=== PATIENT | male | born 2000 | race Caucasian/White ===

== ENCOUNTER 2021-04-14 17:38 | Emergency (ER) | payer SELFPAY ==
[~2021-04-14] VITALS: Ht 172.7 cm; Wt 75.0 kg
--- NOTE | 2021-04-14 17:55 | PHYS DOC ---
Past History Past Medical History: Anxiety, Constipation Smoking: Cigarettes Drug Use: Marijuana General Adult EDM: Chief Complaint: ABDOMINAL PAIN HPI: HPI: Normally follows with ".. I was eating pizza and drinking a coke.. and then I got rapid heart rate.. and abdomen pain.. short of breath.. I thought I was having an anxiety attack... or panic attack.. I did just refused everything.. but I just got off the phone with my mom... and she said I should get checked out." Patient is a 20 year old male who presents with above hx and complaints of abdomen pain. Patient does have a history of anxiety. Patient denies any travel. No specific ill contacts. Normally healthy. Complains of focalized epigastric area. No history of tarry stools. Patient does smoke tobacco and marijuana. Review of Systems: Review of Systems: Constitutional: Denies fever or chills Eyes: Denies change in visual acuity HENT: Denies nasal congestion or sore throat Respiratory: Denies cough or shortness of breath Cardiovascular: Denies chest pain or edema GI: Complains of epigastric abdominal pain, nausea,. Denies vomiting, bloody stools or diarrhea : Denies dysuria Musculoskeletal: Denies back pain or joint pain Integument: Denies rash Neurologic: Denies headache, focal weakness or sensory changes Endocrine: Denies polyuria or polydipsia Lymphatic: Denies swollen glands Psychiatric: Denies depression or anxiety Family History: Family History: Noncontributory Current Medications: Current Meds: See nursing for home meds Allergies: Allergies: No known drug allergies Physical Exam: PE: Constitutional: Well developed, well nourished, no acute distress, non-toxic appearance. [] HENT: Normocephalic, atraumatic, bilateral external ears normal, oropharynx moist, no oral exudates, nose normal. [] Eyes: PERRLA, EOMI, conjunctiva normal, no discharge. [] Neck: Normal range of motion, no tenderness, supple, no stridor. [] Cardiovascular: Bradycardia heart rate regular rhythm, no murmur []. Bedside monitor shows a sinus bradycardic Lungs & Thorax: Bilateral breath sounds clear to auscultation [] Abdomen: Bowel sounds normal, soft, mild epigastric tenderness, no masses, no pulsatile masses. [] Rebound epigastric. Overall abdomen very distended Skin: Warm, dry, no erythema, no rash. [] Back: No tenderness, no CVA tenderness. [] Extremities: No tenderness, no cyanosis, no clubbing, ROM intact, no edema. No psoas sign. Neurologic: Alert and oriented X 3, normal motor function, normal sensory function, no focal deficits noted. [] Psychologic: Affect normal, judgement normal, mood normal. [] EKG: EKG: My interpretation EKG shows a sinus rhythm at 59 bpm. No acute morphology. Time of EKG is 2153 hrs. [] Radiology/Procedures: Radiology/Procedures: [][place] [address] IMAGING REPORT Signed PATIENT: SANYA JAVIER ACCOUNT: [id number] : 2000 LOCATION: ER AGE: 20 SEX: M EXAM STATUS: REG ER ORD. PHYSICIAN: VANESA MIRAMONTES MD REASON: dyspnea, abd. pain PROCEDURE: ACUTE ABDOMEN SERIES Exam: Acute abdominal series INDICATION: Dyspnea TECHNIQUE: Frontal view of the chest with upright and supine views of the abdomen Comparisons: None FINDINGS: The cardiomediastinal silhouette and pulmonary vessels are within normal limits. The lung and pleural spaces are clear. Air and stool are noted throughout the colon to level the rectum in a nonobstructive bowel gas pattern. No suspicious masses or calcifications. Visualized osseous structures are unremarkable. IMPRESSION: 1. No acute cardiopulmonary process. 2. Nonobstructive bowel gas pattern. Electronically signed by: Bernadine Patel MD (04/14/2021 7:11 PM) [facility] DICTATED AND SIGNED BY: BERNADINE PATEL MD DATE: 04/14/211909 CC: VANESA MIRAMONTES MD; PCP,NO ~MTH0 0 Heart Score: C/O Chest Pain: N/A Risk Factors: Risk Factors: DM, Current or recent (<one month) smoker, HTN, HLP, family history of CAD, obesity. Risk Scores: Score 0 - 3: 2.5% MACE over next 6 weeks - Discharge Home Score 4 - 6: 20.3% MACE over next 6 weeks - Admit for Clinical Observation Score 7 - 10: 72.7% MACE over next 6 weeks - Early Invasive Strategies Course & Med Decision Making: Course & Med Decision Making Pertinent Labs and Imaging studies reviewed. (See chart for details) Patient stay on a clear fluid diet only for the next 48 hours. Take Tylenol and ibuprofen as needed for discomfort. Reexam if no improvement follow-up primary care. Return if any concerns. Impression: 1. Abdomen Pain 2. Constipation. 3. Hx. of anxiety and panic attacks [] Dragon Disclaimer: Dragon Disclaimer: This electronic medical record was generated, in whole or in part, using a voice recognition dictation system. Dragon Disclaimer This chart was dictated in whole or in part using Voice Recognition software in a busy, high-work load, and often noisy Emergency Department environment. It may contain unintended and wholly unrecognized errors or omissions. Dragon Disclaimer This chart was dictated in whole or in part using Voice Recognition software in a busy, high-work load, and often noisy Emergency Department environment. It may contain unintended and wholly unrecognized errors or omissions. VANESA MIRAMONTES MD Apr 14, 2021 17:54
[2021-04-14] MEDS ORDERED: ONDANSETRON PF 4 MG/2 ML VIAL. IVP ONE (18:00)
[2021-04-14] MEDS ORDERED: KETOROLAC 30 MG/ML VIAL. IVP ONE (18:00)
[2021-04-14] MEDS ORDERED: FAMOTIDINE 20 MG/2 ML VIAL IVP ONE (18:00)
[2021-04-14] MEDS ORDERED: IV RINGERS SOLUTION,LACTATED 1,000 ML IV SCH (18:00)
[2021-04-14 18:22] VITALS: BP 148/85
--- NOTE | 2021-04-14 19:13 | RAD ---
Exam: Acute abdominal series INDICATION: Dyspnea TECHNIQUE: Frontal view of the chest with upright and supine views of the abdomen Comparisons: None FINDINGS: The cardiomediastinal silhouette and pulmonary vessels are within normal limits. The lung and pleural spaces are clear. Air and stool are noted throughout the colon to level the rectum in a nonobstructive bowel gas patter n. No suspicious masses or calcifications. Visualized osseous structures are unremarkable. IMPRESSION: 1. No acute cardiopulmonary process. 2. Nonobstructive bowel gas pattern. Electronically signed by: Connor Huang MD (04/14/2021 7:11 PM) [facility]
[2021-04-14 19:33] LABS: BASO # 0.1 x10^3/uL (0.0-0.2); BASO % 1 % (0-3); EOS # 0.1 x10^3/uL (0.0-0.7); EOS % 3 % (0-3); HEMATOCRIT 39.4 % (39.0-53.0); HEMOGLOBIN 13.3 g/dL (13.0-17.5); LYMPH # 1.1 x10^3/uL (1.0-4.8); LYMPH % 22 % (24-48); MEAN CORPUSCULAR HEMOGLOBIN 31 pg (25-35); MEAN CORPUSCULAR HGB CONC 34 g/dL (31-37); MEAN CORPUSCULAR VOLUME 91 fL (79-100); MONO # 0.7 x10^3/uL (0.0-1.1); MONO % 15 % (0-9); NEUT % 60 % (31-73); PLATELET COUNT 216 x10^3/uL (140-400); RED BLOOD COUNT 4.31 x10^6/uL (4.30-5.70); RED CELL DISTRIBUTION WIDTH 13.3 % (11.5-14.5)
[2021-04-14 19:34] LABS: CALCIUM 8.8 mg/dL (8.5-10.1); CREATININE 0.8 mg/dL (0.7-1.3); GFR 124.5
[2021-04-14 19:40] LABS: ALBUMIN 3.8 g/dL (3.4-5.0); DIRECT BILIRUBIN 0.1 mg/dL (0.0-0.2); TOTAL BILIRUBIN 0.6 mg/dL (0.2-1.0); TOTAL PROTEIN 6.6 g/dL (6.4-8.2)
[2021-04-14 20:18] LABS: BARBITURATES NEG (NEG); BENZODIAZEPINES NEG (NEG); CANNABINOIDS POS (NEG); COCAINE NEG (NEG); METHADONE NEG (NEG); OPIATES NEG (NEG); PHENCYCLIDINE NEG (NEG)
[2021-04-14 20:20] LABS: AMPHETAMINE/METHAMPHETAMINE NEG (NEG)
[2021-04-14 20:49] LABS: BILIRUBIN,URINE NEG (NEG); CLARITY,URINE CLEAR; COLOR,URINE YELLOW; GLUCOSE,URINE NEG (NEG)
[2021-04-14 20:50] LABS: NITRITE,URINE NEG (NEG); UROBILINOGEN,URINE 0.2 mg/dL (0.2 mg/dL)
[2021-04-14 20:52] LABS: BACTERIA,URINE 0 /HPF (0-FEW); RBC,URINE RARE /HPF (0-2)
[2021-04-14 20:53] LABS: HYALINE CASTS, URINE OCC /HPF
[2021-04-14] MEDS ORDERED: MAGNESIUM HYDROXIDE 2,400 MG/30 ML ORAL.SUSP. PO ONE (21:45)
--- NOTE | 2021-04-14 22:16 | EKG ---
[facility] ED [facility] [address] [place] [id number] Test Date: 2021-04-14 Test Time: 21:53:56 Pat Name: SANYA JAVIER Department: Room: Gender: M Engineering Administrator: KATIE : 2000 Requested By: VANESA MIRAMONTES Order Number: [id number] Reading MD: Measurements Intervals [place] Rate: 59 P: 0 UT: 120 QRS: 75 QRSD: 98 T: 49 QT: 392 QTc: 388 Interpretive Statements SINUS RHYTHM OTHERWISE NORMAL ECG RI6.02 No previous ECG available for comparison
== END 2021-04-14 22:13 | disposition home or self-care (01) ==
LOC: ER 17:38
DX: K59.00 Constipation, unspecified (principal); R10.13 Epigastric pain; F41.9 Anxiety disorder, unspecified; F17.210 Nicotine dependence, cigarettes, uncomplicated; F12.10 Cannabis abuse, uncomplicated
CPT/HCPCS: 36415; 74022; 80048; 80076; 80307; 81001; 82150; 82550; 83690; 84484; 85025; 93005; 99285-25

== ENCOUNTER 2021-04-21 20:19 | Emergency (ER) | payer OTHER ==
[~2021-04-21] VITALS: Ht 185.4 cm; Wt 72.0 kg
[2021-04-21 20:34] VITALS: BP 114/81
--- NOTE | 2021-04-21 21:46 | PHYS DOC ---
Past History Past Medical History: Anxiety, Constipation (ELAINE HURTADO APRN) Past Surgical History: Other Additional Past Surgical Histo: tubes in ears (ELAINE HURTADO APRN) Smoking: Cigarettes Alcohol Use: None Drug Use: Marijuana (ELAINE HURTADO APRN) General Adult EDM: Chief Complaint: BACK PAIN - NO INJURY HPI: HPI: Patient is a 20-year-old male being seen in the ER today for lower back pain that extends to his upper back and left lower abdomen along with constipation. Patient reports that his last normal bowel movement was 2 weeks ago. Patient has a history of constipation is supposed to be taking MiraLAX but just started taking it. Patient is also reporting nausea and vomiting, he reports vomiting one time today. Patient denies fevers, urinary complaints, blood in stools. (ELAINE HURTADO APRN) Review of Systems: Review of Systems: 14 body systems of the review of systems have been reviewed. See HPI for pertinent positive and negative responses, otherwise all other systems are negative, nonpertinent or noncontributory (ELAINE HURTADO APRN) Allergies: Allergies: Allergies Coded Allergies Type Severity Reaction Last Updated Verified No Known Drug Allergies 04/14/21 No (ELAINE HURTADO APRN) Physical Exam: PE: Constitutional: Well developed, well nourished, no acute distress, non-toxic appearance. [] HENT: Normocephalic, atraumatic Eyes: PERRL, conjunctiva normal, no discharge. [] Neck: Normal range of motion, no tenderness, supple, no stridor. [] Cardiovascular:Heart rate regular rhythm, no murmur [] Lungs & Thorax: Bilateral breath sounds clear to auscultation [] Abdomen: Bowel sounds normal, soft, no tenderness with palpation, no masses, no pulsatile masses. [] Skin: Warm, dry, no erythema, no rash. [] Back: Generalized back pain, no bony spinal tenderness, no CVA tenderness. [] Extremities: No tenderness, no cyanosis, no clubbing, ROM intact, no edema. [] Neurologic: Alert and oriented X 3, normal motor function, normal sensory function, no focal deficits noted. [] Psychologic: Affect normal, judgement normal, mood normal. [] (ELAINE HURTADO APRN) Current Patient Data: Vital Signs: Vital Signs Date Time Temp Pulse Resp B/P (MAP) Pulse Ox O2 Delivery O2 Flow Rate FiO2 04/21/21 20:34 98.4 93 18 114/81 97 Room Air (ELAINE HURTADO APRN) EKG: EKG: [] (ELAINE HURTADO APRN) Radiology/Procedures: Radiology/Procedures: [] (ELAINE HURTADO APRN) Impressions: CT abdomen and pelvis without contrast: Reason for examination: Abdominal pain with nausea and constipation. Helical images were obtained through the abdomen and pelvis with no intravenous or oral contrast administered. Reconstruction was performed in sagittal and coronal planes. Exposure: One or more of the following individualized dose reduction techniques were utilized for this examination: 1. Automated exposure control 2. Adjustment of the mA and/or kV according to patient size 3. Use of iterative reconstruction technique. The lung bases are clear. The heart size is normal with no pericardial effusion. No focal abnormalities are seen at the liver, spleen, adrenal glands, pancreas or gallbladder. The abdominal aorta and inferior vena cava show no acute abnormalities. The stomach and duodenum show no acute abnormalities. The small intestinal tract shows no abnormal dilatation, wall thickening or evidence of obstruction. The colon shows no diverticulosis, diverticulitis or evidence of colitis. No abnormality is seen at the appendix. The kidneys show no renal masses, renal calculi, hydronephrosis or evidence of obstructive uropathy. No abnormality seen at the bladder, prostate gland or seminal vesicles. No free fluid or free air seen in the abdomen or pelvis. No acute bony abnormalities are seen. IMPRESSION: No renal calculi or evidence of obstructive uropathy. No other focal abnormality seen in the abdomen or pelvis. Electronically signed by: Susan Burt MD (04/21/2021 10:27 PM) [facility] DICTATED AND SIGNED BY: SUSAN BURT MD DATE: 04/21/212216 CC: ELAINE HURTADO APRN; NON,STAFF ~[facility] 0 (JONEL COPELAND DO) Heart Score: C/O Chest Pain: No Risk Factors: Risk Factors: DM, Current or recent (<one month) smoker, HTN, HLP, family history of CAD, obesity. Risk Scores: Score 0 - 3: 2.5% MACE over next 6 weeks - Discharge Home Score 4 - 6: 20.3% MACE over next 6 weeks - Admit for Clinical Observation Score 7 - 10: 72.7% MACE over next 6 weeks - Early Invasive Strategies (ELAINE HURTADO APRN) Course & Med Decision Making: Course & Med Decision Making Pertinent Labs and Imaging studies reviewed. (See chart for details) Patient is a 20-year-old male being seen in the ER today for back pain and constipation. Work-up in the ER consisted of blood work and CT scan of his abdomen. I discussed patient's case with supervising physician, care transferred at this time 2110 (ELAINE HURTADO APRN) Course & Med Decision Making The patient CT of the abdomen and pelvis is unremarkable. Patient does have some stool so we will try magnesium citrate. The patient feels like he is having muscle spasms. He 5 mg of Valium. He feels like he can go home. He is stable for discharge at this time. (JONEL COPELAND DO) Dragon Disclaimer: Dragon Disclaimer: This electronic medical record was generated, in whole or in part, using a voice recognition dictation system. (ELAINE HURTADO APRN) Departure Departure: Impression: Primary Impression: Constipation Additional Impression: Back pain Disposition: HOME / SELF CARE / HOMELESS Condition: STABLE Referrals: NON,STAFF (PCP) Patient Instructions: Back Pain, Adult, Ivrr-ee-Qssg, Constipation, Adult, Jkpe-aw-Icwz ELAINE HURTADO APRN Apr 21, 2021 21:46 JONEL COPELAND DO Apr 21, 2021 22:43
--- NOTE | 2021-04-21 22:30 | RAD ---
CT abdomen and pelvis without contrast: Reason for examination: Abdominal pain with nausea and constipation. Helical images were obtained through the abdomen and pelvis with no intravenous or oral contrast admi nistered. Reconstruction was performed in sagittal and coronal planes. Exposure: One or more of the following individualized dose reduction techniques were utilized for thi s examination: 1. Automated exposure control 2. Adjustment of the mA and/or kV according to patient size 3. Use of iterative reconstruction technique. The lung bases are clear. The heart size is normal with no pericardial effusion. No focal abnormalities are seen at the liver, spleen, adrenal glands, pancreas or gallbladder. The ab dominal aorta and inferior vena cava show no acute abnormalities. The stomach and duodenum show no ac [place] abnormalities. The small intestinal tract shows no abnormal dilatation, wall thickening or eviden ce of obstruction. The colon shows no diverticulosis, diverticulitis or evidence of colitis. No abnor mality is seen at the appendix. The kidneys show no renal masses, renal calculi, hydronephrosis or ev idence of obstructive uropathy. No abnormality seen at the bladder, prostate gland or seminal vesicles. No free fluid or free air see n in the abdomen or pelvis. No acute bony abnormalities are seen. IMPRESSION: No renal calculi or evidence of obstructive uropathy. No other focal abnormality seen in the abdomen or pelvis. Electronically signed by: Susan Loving MD (04/21/2021 10:27 PM) [facility]
[2021-04-21 22:37] LABS: BASO # 0.1 x10^3/uL (0.0-0.2); BASO % 1 % (0-3); EOS % 0 % (0-3); HEMATOCRIT 39.9 % (39.0-53.0); HEMOGLOBIN 13.7 g/dL (13.0-17.5); LYMPH # 0.7 x10^3/uL (1.0-4.8); LYMPH % 9 % (24-48); MEAN CORPUSCULAR HEMOGLOBIN 31 pg (25-35); MEAN CORPUSCULAR HGB CONC 34 g/dL (31-37); MEAN CORPUSCULAR VOLUME 90 fL (79-100); MONO # 0.7 x10^3/uL (0.0-1.1); MONO % 9 % (0-9); NEUT # 6.5 x10^3uL (1.8-7.7); NEUT % 81 % (31-73); PLATELET COUNT 223 x10^3/uL (140-400); RED BLOOD COUNT 4.42 x10^6/uL (4.30-5.70); RED CELL DISTRIBUTION WIDTH 13.2 % (11.5-14.5)
[2021-04-21 22:45] LABS: CALCIUM 8.9 mg/dL (8.5-10.1); CREATININE 0.8 mg/dL (0.7-1.3); GFR 124.5; POTASSIUM 3.7 mmol/L (3.5-5.1)
[2021-04-21] MEDS ORDERED: MAGNESIUM CITRATE 296 ML SOLUTION. PO ONE (22:45)
[2021-04-21 22:50] LABS: ALBUMIN 4.1 g/dL (3.4-5.0); ALBUMIN/GLOBULIN RATIO 1.4 (1.0-1.7); TOTAL BILIRUBIN 0.6 mg/dL (0.2-1.0); TOTAL PROTEIN 7.1 g/dL (6.4-8.2)
[2021-04-21] MEDS ORDERED: diazePAM 5 MG TABLET. PO ONE (23:15)
== END 2021-04-21 23:42 | disposition home or self-care (01) ==
LOC: ER 20:19
DX: K59.00 Constipation, unspecified (principal); M54.5 Low back pain; R11.2 Nausea with vomiting, unspecified; F41.9 Anxiety disorder, unspecified; F17.210 Nicotine dependence, cigarettes, uncomplicated
CPT/HCPCS: 36415; 74176; 80053; 85025; 99284

== ENCOUNTER 2021-05-05 17:09 | Emergency (ER) | payer OTHER ==
[~2021-05-05] VITALS: Ht 185.4 cm; Wt 70.0 kg
[2021-05-05] MEDS ORDERED: FAMO-63 PO (18:08)
[2021-05-05] MEDS ORDERED: ONDA4TAB12 PO (18:08)
--- NOTE | 2021-05-05 18:08 | PHYS DOC ---
Past History Past Medical History: Anxiety, Constipation Additional Past Surgical Histo: tubes in ears Smoking: Cigarettes Alcohol Use: None Drug Use: Marijuana General Adult EDM: Chief Complaint: HEADACHE HPI: HPI: Patient is a 20 year old male who presents with concerns over a palpable "bump" on the back of his head. States he first noticed it several months ago but that he has not had any complications with it since then. States it is nontender but he began having involuntary shaking of his upper extremities as well as palpitations after touching it earlier today. Notes complete resolution of these symptoms currently. He also notes a history of anxiety for which he recently resumed taking venlafaxine. Also reports epigastric pain and nausea but denies vomiting. Denies fevers, chills, headache, chest pain, or shortness of breath. Review of Systems: Review of Systems: Constitutional: Denies fever or chills Eyes: Denies redness or eye pain HENT: Reports nontender protuberance on posterior aspect of skull. Denies nasal congestion or sore throat Respiratory: Denies cough or shortness of breath Cardiovascular: Denies chest pain or palpitations GI: Reports abdominal pain and nausea. Denies vomiting : Denies dysuria or hematuria Musculoskeletal: Denies back pain or joint pain Integument: Denies rash or skin lesions Neurologic: Denies headache, focal weakness or sensory changes Complete systems were reviewed and found to be within normal limits, except as documented in this note. Allergies: Allergies: Allergies Coded Allergies Type Severity Reaction Last Updated Verified No Known Drug Allergies 04/14/21 No Physical Exam: PE: Constitutional: Tearful. Well developed, well nourished, no acute distress, non- toxic appearance HENT: Normocephalic, atraumatic. Patient points to a bony protuberance that appears to be cranial and symmetrical in nature. No tenderness or erythema noted. Eyes: PERRL, EOMI, conjunctiva normal, no discharge Neck: Normal range of motion, no tenderness, supple Lungs & Thorax: No respiratory distress, equal chest rise and fall Abdomen: Soft, no tenderness Skin: Warm, dry, no erythema, no rash Extremities: No tenderness, ROM intact, no edema Neurologic: Alert and oriented X 3, normal motor function, normal sensory function, no focal deficits noted Psychologic: Affect anxious, judgment normal Current Patient Data: Vital Signs: Vital Signs Date Time Temp Pulse Resp B/P (MAP) Pulse Ox O2 Delivery O2 Flow Rate FiO2 05/05/21 17:45 98.5 80 16 128/70 98 Room Air EKG: EKG: [] Radiology/Procedures: Radiology/Procedures: [] Heart Score: C/O Chest Pain: N/A Course & Med Decision Making: Course & Med Decision Making 20 year old male presents with concerns over a bony protuberance on the posterior skull that appears to be cranial in nature. It was symmetric and n ontender without erythema. Remainder of physical examination did not reveal any acute abnormalities. Patient was given Zofran while in the ED and a prescription for Pepcid. Patient stable for discharge with outpatient follow-up with PCP/GI. GI referral provided. Discussed findings and plan with patient, who acknowledges understanding and agreement. Ziyad Disclaimer: Ziyad Disclaimer: This electronic medical record was generated, in whole or in part, using a voice recognition dictation system. Departure Departure: Impression: Primary Impression: Nausea Additional Impression: Epigastric abdominal pain Disposition: HOME / SELF CARE / HOMELESS Condition: STABLE Referrals: CARLTON GOODE DO (PCP) DARBY EASTMAN MD Patient Instructions: Anxiety and Panic Attacks, Keqa-mp-Kcwz, Gastritis, Adult, Pege-ci-Zcbn, Nausea, Adult, Pvtx-mp-Wwbm Additional Instructions: Please follow with your family physician in addition to GI specialist for further management. Please take your prescribed anxiety medication as directed. Scripts Ondansetron (ONDANSETRON ODT) 4 Mg Tab.rapdis 1 TAB PO PRN Q6-8HRS PRN for NAUSEA, #16 TAB Prov: LETICIA VIDAL DO 05/05/21 Famotidine (PEPCID) 20 Mg Tablet 1 TAB PO BID for Gastritis, #60 TAB Prov: LETICIA VIDAL DO 05/05/21 LETICIA VIDAL DO May 05, 2021 18:08
[2021-05-05] MEDS ORDERED: ONDANSETRON ODT 4 MG TAB.RAPDIS PO ONE (18:15)
[2021-05-05 18:22] VITALS: BP 114/70
== END 2021-05-05 18:24 | disposition home or self-care (01) ==
LOC: ER 17:09
DX: R10.13 Epigastric pain (principal); R00.2 Palpitations; R11.0 Nausea; F17.210 Nicotine dependence, cigarettes, uncomplicated
CPT/HCPCS: 99283; Q0162

== ENCOUNTER 2021-07-01 12:04 | Emergency (ER) | payer OTHER ==
[~2021-07-01] VITALS: Ht 185.4 cm; Wt 70.0 kg
[~2021-07-01 12:04] MED LIST: FAMO-63 PO; ONDA4TAB12 PO
[2021-07-01 12:20] VITALS: BP 114/70
[2021-07-01] MEDS ORDERED: LORazepam 1 MG TABLET PO ONE (12:45)
[2021-07-01] MEDS ORDERED: ORPHENADRINE CITRATE 60 MG/2 ML VIAL. IM ONE (12:45)
--- NOTE | 2021-07-01 12:57 | PHYS DOC ---
Past History Past Medical History: Anxiety, Constipation (TONYA KEEN) Past Surgical History: No Surgical History Additional Past Surgical Histo: tubes in ears (TONYA KEEN) Smoking: Cigarettes Alcohol Use: None Drug Use: Marijuana (TONYA KEEN) General Adult EDM: Chief Complaint: Neck Pain HPI: HPI: Patient is a 21 year old male with history of anxiety and depression who presents with multiple complaints including spine moving to the right side of his body, right sided neck swelling, labile body temperature, difficulty breathing, left-sided low rib/upper abdominal swelling, and lightheadedness with sudden movements. Patient reports he has been seen at several different emergency departments over the past 2 months with unremarkable work-up. He states the only evaluation he has not had is for his brain, and requests a "brain scan." His most recent ER visit was yesterday at [facility], where they discharged him letting him know that he was physically in good health. Patient states he takes daily medications for anxiety and depression for the past 5 years. [place]. He states he does not follow with a therapist or psychologist at this time. (TONYA KEEN) Review of Systems: Review of Systems: ROS negative except as mentioned in HPI. (TONYA KEEN) Current Medications: Current Meds: Current Medications Medications (Trade) Dose Ordered Sig/Leif Start Time Stop Time Status Last Admin Dose Admin Lorazepam (Ativan) 1 mg 1X ONCE 07/01/21 12:45 07/01/21 12:46 DC Orphenadrine Citrate (Norflex) 60 mg 1X ONCE 07/01/21 12:45 07/01/21 12:46 DC (TONYA KEEN) Allergies: Allergies: Allergies Coded Allergies Type Severity Reaction Last Updated Verified No Known Drug Allergies 04/14/21 No (TONYA KEEN) Physical Exam: PE: Constitutional: Tearful, well developed, well nourished, no acute distress, non- toxic appearance. HENT: Normocephalic, atraumatic, bilateral external ears normal, oropharynx moist, no oral exudates, nose normal. Eyes: PERRLA, EOMI, conjunctiva normal, no discharge. Neck: Normal range of motion, no bony tenderness, bilateral paraspinal spasm, supple, no stridor. Cardiovascular:Heart rate regular rhythm, no murmur. Lungs & Thorax: Bilateral breath sounds clear to auscultation. Abdomen: Bowel sounds normal, soft, no tenderness, no masses, no pulsatile masses. Skin: Warm, dry, no erythema, no rash. Back: No bony tenderness, paraspinal thoracic spasm, no CVA tenderness. Extremities: No tenderness, no cyanosis, no clubbing, ROM intact, no edema. Neurologic: Alert and oriented x3, normal motor function, normal sensory function, no focal deficits noted. Psychologic: Affect anxious, judgement fair, mood worried. (TONYA KEEN) Current Patient Data: Vital Signs: Vital Signs Date Time Temp Pulse Resp B/P (MAP) Pulse Ox O2 Delivery O2 Flow Rate FiO2 07/01/21 12:20 98.1 84 18 114/70 (85) 97 Room Air (TONYA KEEN) Heart Score: C/O Chest Pain: No (TONYA KEEN) Course & Med Decision Making: Course & Med Decision Making Pertinent Labs and Imaging studies reviewed. (See chart for details) Patient appears to be extremely anxious and has diffuse nonemergent body complaints. Patient will be provided with Ativan and a muscle relaxer to alleviate his back tension and pain. Patient is open to contacting the [facility] for therapy and psychological follow-up, [place]. He is informed that for further neurologic testing, he will need referral from his primary care provider, and that those are not offered here in the emergency department. On reevaluation at 1325, patient is much more relaxed and does not seem to be in distress. Prescriptions for Norflex and Ativan will be provided to the patient on discharge. After some conversation, patient understands that while his anxiety has been controlled well with his current medications, that is it a dynamic disorder and he may need reevaluation. Patient understands and is agreeable to discharge plan. (TONYA KEEN) Dragon Disclaimer: Dragon Disclaimer: This electronic medical record was generated, in whole or in part, using a voice recognition dictation system. (TONYA KEEN) Departure Departure: Impression: Primary Impression: Anxiety about health Additional Impression: Muscle spasm of back Disposition: HOME / SELF CARE / HOMELESS Condition: STABLE Referrals: CARLTON GOODE DO (PCP) Patient Instructions: Anxiety and Panic Attacks, Ljhc-wq-Svrb, Muscle Cramps, Mwef-za-Fyfv Additional Instructions: As we discussed, you may follow-up with the [facility] Center and/or your primary care physician for further treatment for your anxiety. You are provided with a prescription for Norflex to treat the muscle spasm in your neck and back. As discussed, you may also use warm massage to release muscle tension. Eugg-xsr-keigzzc NSAIDs such as Advil or Aleve may also be useful in reducing inflammation. Please return to the emergency department if your symptoms worsen or you develop new symptoms. Scripts Orphenadrine Citrate (ORPHENADRINE CITRATE) 100 Mg Tablet.er 100 MG PO BID for muscle spasm for 3 Days, #6 TAB.SR Take 1 tablet by mouth twice a day for muscle spasm. Prov: TONYA KEEN 07/01/21 Lorazepam (ATIVAN) 1 Mg Tablet 1 MG PO PRN DAILY PRN for ANXIETY / AGITATION, #5 TAB Take 1 tablet by mouth daily as needed for anxiety. You may take 2 in 1 day. Prov: TONYA KEEN 07/01/21 Attending Signature Attending Signature I have reviewed the PA/[employer]'s note and plan of care. I was available for consultation as needed during the patient's visit in the emergency department. I agree with the clinical impression, plan, and disposition. (LETICIA VIDAL DO) TONYA KEEN Jul 01, 2021 12:57 LETICIA VIDAL DO Jul 01, 2021 13:59
[2021-07-01] MEDS ORDERED: ORPH-16 PO (13:32)
[2021-07-01] MEDS ORDERED: LORA-254 PO (13:32)
== END 2021-07-01 13:40 | disposition home or self-care (01) ==
LOC: ER 12:04
DX: F41.9 Anxiety disorder, unspecified (principal); M62.830 Muscle spasm of back; R22.0 Localized swelling, mass and lump, head; R42 Dizziness and giddiness; F32.9 Major depressive disorder, single episode, unspecified
CPT/HCPCS: 96372; 99283; J2360

== ENCOUNTER → 2021-07-16 | Outpatient (CLI) | payer OTHER ==
[2021-07-01 12:20] VITALS: BP 114/70
[~2021-07-16] MED LIST changes: +LORA-254 PO; +ORPH-16 PO
--- NOTE | 2021-07-16 11:31 | RAD ---
Complete abdominal ultrasound 07/16/2021 INDICATION: Abdominal pain. COMPARISON STUDY: None Discussion: Ultrasound imaging of the abdomen was performed. Static images are submitted to PACS. Barrientos creas is poorly visualized. Visualized portions of the pancreas are unremarkable. Visualized portions of aorta and IVC are unremarkable. The liver is normal in echotexture. No focal hepatic lesions are identified. The liver is normal in size measuring 15 cm longitudinally. Portal venous flows in the no rmal direction. The gallbladder demonstrates no evidence of wall thickening, stones, or sludge. The r ight kidney is normal in appearance measuring 12.7 cm longitudinally. The common bile duct is nondila zenon measuring 2 mm in diameter. The spleen is unremarkable in appearance measuring 10.9 cm longitudin ally. Left kidney is unremarkable in appearance measuring 12.2 cm longitudinally. IMPRESSION: Normal sonographic appearance of the abdomen Electronically signed by: Alfonzo Chavez MD (07/16/2021 11:28 AM) [id number]
== END ==
LOC: US 10:47
PROVIDERS: ATTEND Nurse Practitioner Family
DX: R10.9 Unspecified abdominal pain (principal)
CPT/HCPCS: 76700

== ENCOUNTER 2021-08-09 18:16 | Emergency (ER) | payer OTHER ==
[~2021-08-09] VITALS: Ht 185.4 cm; Wt 70.7 kg
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
[2021-08-09] MEDS ORDERED: CYCL10TA19 PO (18:38)
[2021-08-09] MEDS ORDERED: IBUPROFEN 600 MG TABLET. PO ONE (18:45)
[2021-08-09] MEDS ORDERED: diazePAM 5 MG TABLET. PO ONE (18:45)
[2021-08-09] MEDS ORDERED: ACETAMINOPHEN 500 MG TABLET PO ONE (18:45)
[2021-08-09 18:50] VITALS: BP 145/82
== END 2021-08-09 18:52 | disposition home or self-care (01) ==
LOC: ER 18:16
DX: M54.59 Other low back pain (principal); M54.2 Cervicalgia; F41.9 Anxiety disorder, unspecified; F17.210 Nicotine dependence, cigarettes, uncomplicated
CPT/HCPCS: 99284

== ENCOUNTER 2021-09-24 15:28 | Emergency (ER) | payer OTHER ==
[~2021-09-24] VITALS: Ht 185.4 cm; Wt 68.7 kg
[~2021-09-24 15:28] MED LIST changes: +CYCL10TA19 PO
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
[2021-09-24 16:54] VITALS: BP 134/92
== END 2021-09-24 16:54 | disposition home or self-care (01) ==
LOC: ER 15:28
DX: M54.2 Cervicalgia (principal); R07.81 Pleurodynia; F41.9 Anxiety disorder, unspecified; F32.9 Major depressive disorder, single episode, unspecified; F17.210 Nicotine dependence, cigarettes, uncomplicated; V98.8XXA Other specified transport accidents, initial encounter; Y93.89 Activity, other specified; Y92.89 Other specified places as the place of occurrence of the external cause; Y99.8 Other external cause status
CPT/HCPCS: 70450; 71046; 72125; 99284

== ENCOUNTER 2021-09-26 12:17 | Emergency (ER) | payer OTHER ==
[~2021-09-26] VITALS: Ht 185.4 cm; Wt 68.2 kg
[2021-09-26 13:41] LABS: BASO # 0.1 x10^3/uL (0.0-0.2); BASO % 2 % (0-3); EOS # 0.2 x10^3/uL (0.0-0.7); EOS % 4 % (0-3); HEMATOCRIT 44.8 % (39.0-53.0); HEMOGLOBIN 15.1 g/dL (13.0-17.5); LYMPH # 1.2 x10^3/uL (1.0-4.8); LYMPH % 29 % (24-48); MEAN CORPUSCULAR HEMOGLOBIN 31 pg (25-35); MEAN CORPUSCULAR HGB CONC 34 g/dL (31-37); MEAN CORPUSCULAR VOLUME 92 fL (79-100); MONO # 0.6 x10^3/uL (0.0-1.1); MONO % 14 % (0-9); NEUT # 2.2 x10^3uL (1.8-7.7); NEUT % 50 % (31-73); PLATELET COUNT 244 x10^3/uL (140-400); RED BLOOD COUNT 4.88 x10^6/uL (4.30-5.70); RED CELL DISTRIBUTION WIDTH 12.6 % (11.5-14.5); WHITE BLOOD COUNT 4.3 x10^3/uL (4.0-11.0)
[2021-09-26 13:56] LABS: CALCIUM 9.2 mg/dL (8.5-10.1); CREATININE 0.8 mg/dL (0.7-1.3); GFR 123.2; POTASSIUM 4.2 mmol/L (3.5-5.1)
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
[2021-09-26 14:02] LABS: ALBUMIN 4.4 g/dL (3.4-5.0); ALBUMIN/GLOBULIN RATIO 1.2 (1.0-1.7); TOTAL BILIRUBIN 1.1 mg/dL (0.2-1.0)
[2021-09-26 14:50] LABS: BARBITURATES NEG (NEG); BENZODIAZEPINES NEG (NEG); CANNABINOIDS POS (NEG); COCAINE NEG (NEG); METHADONE NEG (NEG); OPIATES NEG (NEG); PHENCYCLIDINE NEG (NEG)
[2021-09-26 15:11] LABS: AMPHETAMINE/METHAMPHETAMINE NEG (NEG)
[2021-09-26 15:21] LABS: BACTERIA,URINE 0 /HPF (0-FEW); BILIRUBIN,URINE NEG (NEG); CLARITY,URINE CLEAR; COLOR,URINE YELLOW; GLUCOSE,URINE NEG (NEG); NITRITE,URINE NEG (NEG); RBC,URINE 0 /HPF (0-2); UROBILINOGEN,URINE 0.2 mg/dL (0.2 mg/dL); WBC,URINE 0 /HPF (0-4)
[2021-09-26] MEDS ORDERED: CLON1TAB PO (15:58)
[2021-09-26] MEDS ORDERED: CLON0.5T4 PO (15:59)
[2021-09-26 16:06] VITALS: BP 137/81
== END 2021-09-26 16:06 | disposition home or self-care (01) ==
LOC: ER 12:17
DX: F41.9 Anxiety disorder, unspecified (principal); F22 Delusional disorders; F32.9 Major depressive disorder, single episode, unspecified; F17.210 Nicotine dependence, cigarettes, uncomplicated
CPT/HCPCS: 36415; 80053; 80307; 81001; 85025; 99283

== ENCOUNTER 2021-09-29 18:51 | Emergency (ER) | payer OTHER ==
[~2021-09-29 18:51] MED LIST changes: +CLON0.5T4 PO; +CLON1TAB PO
== END 2021-09-29 20:11 | disposition left against medical advice (07) ==
LOC: ER 18:51
DX: R45.851 Suicidal ideations (principal); Z53.21 Procedure and treatment not carried out due to patient leaving prior to being seen by health care provider
CPT/HCPCS: 99285